=== PATIENT | female | born 1960 | race Caucasian/White ===

== ENCOUNTER 2016-11-20 14:14 | Emergency (ER) | payer BC ==
[2016-11-20 14:58] VITALS: BP 111/77
--- NOTE | 2016-11-20 15:28 | UC ---
Complaint Female HPI - HPI Summary HPI Summary: TWO DAYS URINARY PRESSURE DISCOMFORT FREQUENCY; NO ABDOMINAL PAIN, NO BACK PAIN , NO FEVER. - History Of Current Complaint Chief Complaint: UCGU Stated Complaint: URINARY Time Seen by Provider: 11/20/16 14:50 Hx Obtained From: Patient Hx Last Menstrual Period: 3yrs Onset/Duration: Gradual Onset, Lasting Days, Still Present Timing: Lasting Days Severity Initially: Moderate Severity Currently: Moderate Pain Intensity: 4 Pain Scale Used: 0-10 Numeric Character: Dull, Burning Associated Signs And Symptoms: Positive: Negative - Risk Factors Ectopic Risk Factor: Negative Ovarian Torsion Risk Factor: Negative - Allergies/Home Medications Allergies/Adverse Reactions: Allergies Allergy/AdvReac Type Severity Reaction Status Date / Time No Known Allergies Allergy Verified 11/20/16 14:58 PMH/Surg Hx/FS Hx/Imm Hx Previously Healthy: Yes - Surgical History Surgery Procedure, Year, and Place: , "sleeve gastrectomy" 2012 - Social History Alcohol Use: Occasionally Substance Use Type: None Smoking Status (MU): Never Smoked Tobacco Review of Systems Constitutional: Negative Skin: Negative Eyes: Negative ENT: Negative Respiratory: Negative Cardiovascular: Negative Gastrointestinal: Negative Genitourinary: Dysuria, Frequency, Urgency Motor: Negative Neurovascular: Negative Musculoskeletal: Negative Neurological: Negative Psychological: Negative All Other Systems Reviewed And Are Negative: Yes Physical Exam Triage Information Reviewed: Yes Appearance: Well-Appearing, No Pain Distress, Well-Nourished Vital Signs: Initial Vital Signs Temp 98.6 F 11/20/16 14:52 Pulse 83 11/20/16 14:52 Resp 20 11/20/16 14:52 BP 111/77 11/20/16 14:52 Vital Signs Reviewed: Yes Eye Exam: Normal ENT Exam: Normal ENT: Positive: Normal ENT inspection, TMs normal Dental Exam: Normal Neck exam: Normal Neck: Positive: Supple, Nontender, No Lymphadenopathy Respiratory Exam: Normal Respiratory: Positive: Chest non-tender, Lungs clear, Normal breath sounds, No respiratory distress Cardiovascular Exam: Normal Cardiovascular: Positive: RRR, No Murmur Abdominal Exam: Normal Musculoskeletal Exam: Normal Musculoskeletal: Positive: Strength Intact, ROM Intact Neurological Exam: Normal Psychological Exam: Normal Psychological: Positive: Normal Response To Family Skin Exam: Normal Complaint Female Dx - Differential Dx/Diagnosis Differential Diagnosis/HQI/PQRI: Ureteral Stone, Urinary Tract Infection Provider Diagnoses: URINARY TRACT INFECTION Discharge - Discharge Plan Condition: Stable Disposition: HOME Prescriptions: Phenazopyridine TAB* [Pyridium 100 mg TAB*] 100 mg PO TID PRN #15 tab PRN Reason: Pain Sulfamethox/Trimethoprim DS* [Bactrim DS 800/160 TAB*] 1 tab PO BID #10 tab Patient Education Materials: Urinary Tract Infection in Women (ED) Referrals: Bianka Hale MD [Primary Care Provider] -
== END 2016-11-20 15:17 | disposition home or self-care (01) ==
LOC: UCCORT 14:14
DX: N39.0 Urinary tract infection, site not specified (principal)
CPT/HCPCS: 81003; 87086; 99212; G0463

== ENCOUNTER 2017-04-20 14:06 | Emergency (ER) | payer BC ==
[2017-04-20 14:56] VITALS: BP 111/71
--- NOTE | 2017-04-20 15:03 | UC ---
Throat Pain/Nasal Aba HPI - HPI Summary HPI Summary: 56F presents with sinus congestion for 12 days. She states in the past couple days the sinus congestion has changed. It was runny and now is thicker and stuck. She has been using a nettipott and sudafed without relief. She admits to post nasal drip and sore throat from such. She admits to pressure behind ears and headache. She denies any chest pain, SOB, or abdominal pain. medication reviewed. - History of Current Complaint Chief Complaint: UCGeneralIllness Stated Complaint: SINUS COMPLAINT Time Seen by Provider: 04/20/17 14:56 Hx Last Menstrual Period: 3yrs Pain Intensity: 3 - Allergies/Home Medications Allergies/Adverse Reactions: Allergies Allergy/AdvReac Type Severity Reaction Status Date / Time No Known Allergies Allergy Verified 04/20/17 14:48 Home Medications: Home Medications Pseudoephedrine-Ibuprofen [Advil Cold & Sinus] 1 cap PO Q6H PRN 04/20/17 [ History Confirmed 04/20/17] PMH/Surg Hx/FS Hx/Imm Hx Endocrine History: Other Other Endocrine History: no DM Respiratory History: Other Other Respiratory History: no asthma - Surgical History Surgery Procedure, Year, and Place: , "sleeve gastrectomy" 2012 - Family History Known Family History: Negative: Respiratory Disease - Social History Alcohol Use: Occasionally Substance Use Type: None Smoking Status (MU): Never Smoked Tobacco Review of Systems Constitutional: Negative ENT: Sinus Congestion, Sinus Pain/Tenderness Respiratory: Cough Cardiovascular: Negative All Other Systems Reviewed And Are Negative: Yes Physical Exam Triage Information Reviewed: Yes Appearance: Well-Appearing Vital Signs: Initial Vital Signs Temp 98.4 F 04/20/17 14:50 Pulse 80 04/20/17 14:50 Resp 16 04/20/17 14:50 BP 111/71 04/20/17 14:50 Pulse Ox 97 04/20/17 14:50 Eye Exam: Normal ENT: Positive: Pharynx normal, Nasal congestion, TMs normal - with fluid behind TM, Sinus tenderness Neck: Positive: Supple, Nontender, No Lymphadenopathy Respiratory: Positive: Lungs clear, Normal breath sounds Cardiovascular: Positive: RRR Abdomen Description: Positive: Nontender, Soft Bowel Sounds: Positive: Present Musculoskeletal Exam: Normal Neurological Exam: Normal Psychological Exam: Normal Skin Exam: Normal Throat Pain/Nasal Course/Dx - Course Course Of Treatment: 56F presents with sinus congestion for 12 days. She states in the past couple days the sinus congestion has changed. It was runny and now is thicker and stuck. She has been using a nettipott and sudafed without relief. She admits to post nasal drip and sore throat from such. She admits to pressure behind ears and headache. She denies any chest pain, SOB, or abdominal pain. on exam has fluid behind TM, sinus tenderness, lungs CTA, pharynx normal. will treat for sinus infection with augmentin. patient understand and agrees with plan. - Differential Dx/Diagnosis Differential Diagnosis/HQI/PQRI: Pharyngitis, Sinusitis, URI Provider Diagnoses: sinusitis Discharge - Discharge Plan Condition: Good Disposition: HOME Prescriptions: Amoxicillin/Clavulanate TAB* [Augmentin TAB 500 mg*] 500 mg PO BID #20 tab Patient Education Materials: Sinusitis (ED) Referrals: [facility] [place] [facility] [Outside] Additional Instructions: Take antibiotic twice a day for 10 days Use saline spray in nose as much as needed Use humidifier in room or can use warm water in bowls Use OTC decongestions Follow up with primary care physician within a week for no improvement Return to ED with any new or worsening symptoms
== END 2017-04-20 15:11 | disposition home or self-care (01) ==
LOC: UCCORT 14:06
DX: J32.9 Chronic sinusitis, unspecified (principal); Z98.84 Bariatric surgery status
CPT/HCPCS: 99212; G0463

== ENCOUNTER 2017-05-13 07:00 | Emergency (ER) | payer BC ==
[2017-05-13 07:18] VITALS: BP 118/77
--- NOTE | 2017-05-13 07:31 | UC ---
Complaint Female HPI - HPI Summary HPI Summary: urinary frequency x 2 days no dysuria, + bad odor of the urine no fever, no chills, no flank pain - History Of Current Complaint Chief Complaint: UCGU Stated Complaint: URINARY Time Seen by Provider: 05/13/17 07:14 Hx Obtained From: Patient Hx Last Menstrual Period: 3yrs Onset/Duration: Gradual Onset, Lasting Days - 2, Still Present Timing: Constant Severity Initially: Moderate Severity Currently: Moderate Pain Intensity: 3 Character: Not Applicable Aggravating Factor(s): Urination Alleviating Factor(s): Nothing Associated Signs And Symptoms: Negative: Fever, Back Pain, Vaginal Bleeding/ Discharge, Vaginal Discharge, Vomiting(# Of Episodes =), Genital Swelling, Genital Blisters, Retained Foregin Body (Specify) - Allergies/Home Medications Allergies/Adverse Reactions: Allergies Allergy/AdvReac Type Severity Reaction Status Date / Time No Known Allergies Allergy Verified 05/13/17 07:15 PMH/Surg Hx/FS Hx/Imm Hx Previously Healthy: Yes - Surgical History Surgery Procedure, Year, and Place: , "sleeve gastrectomy" 2012 - Family History Known Family History: Negative: Respiratory Disease - Social History Alcohol Use: Occasionally Substance Use Type: None Smoking Status (MU): Never Smoked Tobacco Review of Systems Constitutional: Negative Skin: Negative Eyes: Negative ENT: Negative Respiratory: Negative Cardiovascular: Negative Gastrointestinal: Negative Genitourinary: Frequency, Urgency Is Patient Immunocompromised?: No All Other Systems Reviewed And Are Negative: Yes Physical Exam Triage Information Reviewed: Yes Appearance: Well-Appearing, No Pain Distress, Well-Nourished Vital Signs: Initial Vital Signs Temp 98.3 F 05/13/17 07:09 Pulse 67 05/13/17 07:09 Resp 16 05/13/17 07:09 BP 118/77 05/13/17 07:09 Pulse Ox 100 05/13/17 07:09 Vital Signs Reviewed: Yes Eyes: Positive: Conjunctiva Clear ENT: Positive: Normal ENT inspection, Hearing grossly normal, Pharynx normal Neck exam: Normal Neck: Positive: Supple, Nontender, No Lymphadenopathy Respiratory: Positive: Chest non-tender, Lungs clear, Normal breath sounds, No respiratory distress Cardiovascular: Positive: RRR, No Murmur, Pulses Normal, Brisk Capillary Refill Skin Exam: Normal Complaint Female Dx - Differential Dx/Diagnosis Provider Diagnoses: UTI Discharge - Discharge Plan Condition: Stable Disposition: HOME Prescriptions: Sulfamethox/Trimethoprim DS* [Bactrim DS 800/160 TAB*] 1 tab PO BID #14 tab Patient Education Materials: Urinary Tract Infection in Women (ED) Referrals: No Primary Care Phys,NOPCP [Primary Care Provider] - 7 Days
== END 2017-05-13 07:33 | disposition home or self-care (01) ==
LOC: UCCORT 07:00
DX: N39.0 Urinary tract infection, site not specified (principal)
CPT/HCPCS: 81003; 87086; 99212; G0463

== ENCOUNTER 2017-11-18 18:42 | Emergency (ER) | payer BC ==
[2017-11-18 19:02] VITALS: BP 121/62
[2017-11-18] MEDS ORDERED: Nitrofurantoin Macrocrystals* 50 MG CAP PO ONE ×2 (19:19→19:23)
[2017-11-18] MEDS ORDERED: Phenazopyridine TAB* 100 MG PO ONE (19:19)
--- NOTE | 2017-11-18 19:26 | UC ---
Complaint Female HPI - HPI Summary HPI Summary: patient c/o dysuria and frequency for the past 3 days, denies flank pain, fever or chills. States she takes cranberry pills to prevent UTIs but this time around she was very dehydrated. Last UTI about a year ago. - History Of Current Complaint Chief Complaint: UCGU Stated Complaint: URINARY Time Seen by Provider: 11/18/17 19:12 Hx Obtained From: Patient Hx Last Menstrual Period: 3yrs Onset/Duration: Sudden Onset, Lasting Days Severity Initially: Mild Severity Currently: Moderate Pain Intensity: 3 Character: Burning Aggravating Factor(s): Urination Alleviating Factor(s): Nothing Associated Signs And Symptoms: Positive: Negative - Risk Factors Ectopic Risk Factor: Negative Ovarian Torsion Risk Factor: Negative - Allergies/Home Medications Allergies/Adverse Reactions: Allergies Allergy/AdvReac Type Severity Reaction Status Date / Time No Known Allergies Allergy Verified 11/18/17 19:02 PMH/Surg Hx/FS Hx/Imm Hx Previously Healthy: Yes - Surgical History Surgery Procedure, Year, and Place: , "sleeve gastrectomy" 2012 - Family History Known Family History: Positive: None Negative: Respiratory Disease - Social History Alcohol Use: Occasionally Substance Use Type: None Smoking Status (MU): Never Smoked Tobacco Review of Systems Constitutional: Negative Genitourinary: Dysuria, Frequency All Other Systems Reviewed And Are Negative: Yes Physical Exam Triage Information Reviewed: Yes Appearance: Well-Appearing, No Pain Distress, Well-Nourished Vital Signs: Initial Vital Signs Temp 98.2 F 11/18/17 18:55 Pulse 86 11/18/17 18:55 Resp 16 11/18/17 18:55 BP 121/62 11/18/17 18:55 Pulse Ox 100 11/18/17 18:55 Vital Signs Reviewed: Yes Eyes: Positive: Conjunctiva Clear ENT: Positive: Hearing grossly normal Neck: Positive: Supple, Nontender, No Lymphadenopathy Respiratory: Positive: Chest non-tender, Lungs clear, Normal breath sounds, No respiratory distress Cardiovascular: Positive: RRR, No Murmur, Pulses Normal, Brisk Capillary Refill Abdomen Description: Positive: Nontender, No Organomegaly, Soft Bowel Sounds: Positive: Present Complaint Female Dx - Course Course Of Treatment: start pyridium only for symptomatic relief and macrobid twice a day for 7 days, continue plenty of fluids, f/u with PCP as needed - Differential Dx/Diagnosis Provider Diagnoses: UTI Discharge - Sign-Out/Discharge Documenting (check all that apply): Patient Departure All imaging exams completed and their final reports reviewed: No Studies - Discharge Plan Condition: Stable Disposition: HOME Prescriptions: Nitrofurantoin Monohyd/M-Cryst [Macrobid 100 mg Capsule] 100 mg PO BID 7 Days # 14 cap Phenazopyridine TAB* [Pyridium 100 mg TAB*] 100 mg PO TID PRN #3 tab PRN Reason: Pain Patient Education Materials: Phenazopyridine (By mouth), Urinary Tract Infection in Women (ED), Nitrofurantoin Macrocrystals (By mouth) Referrals: Bianka Hale MD [Primary Care Provider] - - Billing Disposition and Condition Condition: STABLE Disposition: Home
== END 2017-11-18 19:36 | disposition home or self-care (01) ==
LOC: UCCORT 18:42
DX: N39.0 Urinary tract infection, site not specified (principal)
CPT/HCPCS: 87077; 87086; 87186; 99213; A9270-GY; G0463

== ENCOUNTER 2017-11-30 18:12 | Emergency (ER) | payer BC ==
[2017-11-30 19:00] VITALS: BP 114/70
--- NOTE | 2017-11-30 20:08 | UC ---
Complaint Female HPI - HPI Summary HPI Summary: E. coli UTI treated her on 11/18, sensitive to all antibiotics tested. Took full course, added cranberry and high intake of fluids, but had recurrence of symptoms within 48 hours, with dysuria, frequency and urgency. Post menopause x 2 years, no increase in sexual activity, no vaginal symptoms. - History Of Current Complaint Chief Complaint: UCGU Stated Complaint: URINARY Time Seen by Provider: 11/30/17 19:58 Hx Obtained From: Patient Hx Last Menstrual Period: none Onset/Duration: Sudden Onset, Lasting Days - 2 Timing: Constant Severity Initially: Moderate Severity Currently: Moderate Pain Intensity: 3 Character: Burning, Cramping Aggravating Factor(s): Urination - Allergies/Home Medications Allergies/Adverse Reactions: Allergies Allergy/AdvReac Type Severity Reaction Status Date / Time No Known Allergies Allergy Verified 11/30/17 18:50 PMH/Surg Hx/FS Hx/Imm Hx Previously Healthy: Yes - Surgical History Surgery Procedure, Year, and Place: , "sleeve gastrectomy" 2012 - Family History Known Family History: Positive: Hypertension, Other Family History: mother of carcinoid - Social History Occupation: Employed Full-time Lives: With Family Alcohol Use: Occasionally Substance Use Type: None Smoking Status (MU): Never Smoked Tobacco Review of Systems Constitutional: Negative Skin: Negative Eyes: Negative ENT: Negative Respiratory: Negative Cardiovascular: Negative Gastrointestinal: Negative Genitourinary: Dysuria, Frequency, Urgency Motor: Negative Neurovascular: Negative Musculoskeletal: Arthralgia - low back ache. Neurological: Negative Psychological: Negative Is Patient Immunocompromised?: No All Other Systems Reviewed And Are Negative: Yes Physical Exam Triage Information Reviewed: Yes Appearance: Well-Appearing, No Pain Distress Vital Signs: Initial Vital Signs Temp 97.9 F 11/30/17 18:52 Pulse 67 11/30/17 18:52 Resp 22 11/30/17 18:52 BP 114/70 11/30/17 18:52 Pulse Ox 100 11/30/17 18:52 Eyes: Positive: Conjunctiva Clear Respiratory: Positive: Lungs clear, Normal breath sounds Cardiovascular: Positive: RRR, No Murmur Abdomen Description: Positive: Nontender, No Organomegaly, Soft. Negative: CVA Tenderness (R), CVA Tenderness (L) Neurological Exam: Normal Psychological Exam: Normal Skin Exam: Normal Diagnostics - Laboratory Diagnostic Studies Completed/Ordered: culture sent; no UA dip due to use of azo Complaint Female Dx - Course Course Of Treatment: bactrim for UTI - Differential Dx/Diagnosis Differential Diagnosis/HQI/PQRI: Urinary Tract Infection Provider Diagnoses: UTI Discharge - Sign-Out/Discharge Documenting (check all that apply): Patient Departure All imaging exams completed and their final reports reviewed: No Studies - Discharge Plan Condition: Stable Disposition: HOME Prescriptions: Sulfamethox/Trimethoprim DS* [Bactrim DS 800/160 TAB*] 1 tab PO BID #10 tab Patient Education Materials: Urinary Tract Infection in Women (ED) Referrals: Bianka Hale MD [Primary Care Provider] - Additional Instructions: As reviewed, the recurrence of symptoms is most likely a problem of resistance, but follow up with be important. I suggest ensuring a follow up culture with Dr. Hale. Continue high intake of fluids, take full course of bactrim. You can call for the results of the culture on Monday afternoon if you have not had a call. - Billing Disposition and Condition Condition: STABLE Disposition: Home
--- NOTE | 2017-12-03 08:31 | UC ---
- Progress Note Progress Note: Please call to advise that repeat culture did not grow out a bacteria. This could be because she was taking an antibiotic at the time. If she is not feeling better, should follow up with PMD. Discharge - Sign-Out/Discharge Documenting (check all that apply): Patient Departure All imaging exams completed and their final reports reviewed: No Studies - Discharge Plan Condition: Stable Disposition: HOME Prescriptions: Sulfamethox/Trimethoprim DS* [Bactrim DS 800/160 TAB*] 1 tab PO BID #10 tab Patient Education Materials: Urinary Tract Infection in Women (ED) Referrals: Bianka Hale MD [Primary Care Provider] - Additional Instructions: As reviewed, the recurrence of symptoms is most likely a problem of resistance, but follow up with be important. I suggest ensuring a follow up culture with Dr. Hale. Continue high intake of fluids, take full course of bactrim. You can call for the results of the culture on Monday afternoon if you have not had a call. - Billing Disposition and Condition Condition: STABLE Disposition: Home
== END 2017-11-30 20:17 | disposition home or self-care (01) ==
LOC: UCCORT 18:12
DX: N39.0 Urinary tract infection, site not specified (principal)
CPT/HCPCS: 87086; 99212; G0463

== ENCOUNTER 2018-06-02 09:22 | Emergency (ER) | payer BC ==
[2018-06-02 09:37] VITALS: BP 106/66
--- NOTE | 2018-06-02 09:49 | UC ---
Throat Pain/Nasal Aba HPI - HPI Summary HPI Summary: sinus pain and pressure x 8 days nasal congestion and yellow / green discharge sore throat , ear pain , no cough , no fever , + chills - History of Current Complaint Chief Complaint: UCRespiratory Stated Complaint: SINUSES Time Seen by Provider: 06/02/18 09:41 Hx Obtained From: Patient Hx Last Menstrual Period: none Onset/Duration: Gradual Onset, Lasting Days - 8, Still Present Severity: Moderate Pain Intensity: 0 Cough: None Associated Signs & Symptoms: Positive: Sinus Discomfort, Nasal Discharge. Negative: Wheezing, Hoarseness, Fever, Vomiting, Rash - Allergies/Home Medications Allergies/Adverse Reactions: Allergies Allergy/AdvReac Type Severity Reaction Status Date / Time No Known Allergies Allergy Verified 06/02/18 09:32 Home Medications: Home Medications Ibuprofen/Pseudoephedrine HCl [Advil Cold & Sinus] 2 tab PO Q6H PRN 06/02/18 [ History Confirmed 06/02/18] Naproxen Sodium [Aleve] 220 mg PO BID 06/02/18 [History Confirmed 06/02/18] PMH/Surg Hx/FS Hx/Imm Hx Previously Healthy: Yes - Surgical History Surgical History: Yes Surgery Procedure, Year, and Place: , "sleeve gastrectomy" 2012 - Family History Known Family History: Positive: None, Hypertension, Other Negative: Respiratory Disease Family History: mother of carcinoid - Social History Alcohol Use: Occasionally Substance Use Type: None Smoking Status (MU): Never Smoked Tobacco Review of Systems All Other Systems Reviewed And Are Negative: Yes Constitutional: Positive: Chills, Fatigue Skin: Positive: Negative Eyes: Positive: Negative ENT: Positive: Sore Throat, Ear Ache, Nasal Discharge, Sinus Congestion, Sinus Pain/Tenderness Respiratory: Positive: Negative Cardiovascular: Positive: Negative Gastrointestinal: Positive: Negative Genitourinary: Positive: Negative Is Patient Immunocompromised?: No Physical Exam Triage Information Reviewed: Yes Appearance: Well-Appearing, No Pain Distress, Well-Nourished Vital Signs: Initial Vital Signs Temp 97.8 F 06/02/18 09:34 Pulse 87 06/02/18 09:34 Resp 16 06/02/18 09:34 BP 106/66 06/02/18 09:34 Pulse Ox 100 06/02/18 09:34 Vital Signs Reviewed: Yes Eyes: Positive: Conjunctiva Clear ENT: Positive: Normal ENT inspection, Hearing grossly normal, Pharynx normal, Nasal drainage, TMs normal, Sinus tenderness. Negative: TM bulging, TM dull, TM red, Tonsillar swelling, Tonsillar exudate Neck: Positive: Supple, Nontender, No Lymphadenopathy Respiratory: Positive: Chest non-tender, Lungs clear, Normal breath sounds Cardiovascular: Positive: RRR, No Murmur, Pulses Normal Abdominal Exam: Normal Skin Exam: Normal Throat Pain/Nasal Course/Dx - Differential Dx/Diagnosis Provider Diagnosis: Sinusitis Discharge - Sign-Out/Discharge Documenting (check all that apply): Patient Departure All imaging exams completed and their final reports reviewed: No Studies - Discharge Plan Condition: Stable Disposition: HOME Prescriptions: Amoxicillin/Clavulanate TAB* [Augmentin TAB 875*] 875 mg PO BID #20 tab Patient Education Materials: Sinusitis (ED) Referrals: Bianka Hale MD [Primary Care Provider] - If Needed - Billing Disposition and Condition Condition: STABLE Disposition: Home
== END 2018-06-02 09:49 | disposition home or self-care (01) ==
LOC: UCCORT 09:22
DX: J32.9 Chronic sinusitis, unspecified (principal); J02.9 Acute pharyngitis, unspecified
CPT/HCPCS: 99212; G0463

== ENCOUNTER 2019-03-27 08:19 | Emergency (ER) | payer BC ==
[2019-03-27 08:37] VITALS: BP 111/78
--- NOTE | 2019-03-27 08:46 | UC ---
Throat Pain/Nasal Aba HPI - HPI Summary HPI Summary: 58-year-old woman comes in with chief complaint of upper respiratory tract infection symptoms for 10 days. She's and yellow rhinorrhea with postnasal drip. She's been using [id number] medications which helped some with the symptoms briefly but overall she's getting worse. She now has sinus pressure in both ears hurt the left worse than the right. With postnasal drip she does have a cough however denies any chest congestion or shortness of breath. - History of Current Complaint Chief Complaint: UCRespiratory Stated Complaint: SINUS COMPLAINT Time Seen by Provider: 03/27/19 08:31 Hx Last Menstrual Period: none Pain Intensity: 2 - Allergies/Home Medications Allergies/Adverse Reactions: Allergies Allergy/AdvReac Type Severity Reaction Status Date / Time No Known Allergies Allergy Verified 03/27/19 08:32 Home Medications: Home Medications Ibuprofen TAB* [Advil TAB*] 400 mg PO Q6H PRN 03/27/19 [History Confirmed ] PMH/Surg Hx/FS Hx/Imm Hx Previously Healthy: Yes - Surgical History Surgical History: Yes Surgery Procedure, Year, and Place: , "sleeve gastrectomy" 2012 - Family History Known Family History: Positive: None, Hypertension, Other Negative: Respiratory Disease Family History: mother of carcinoid - Social History Alcohol Use: Occasionally Substance Use Type: None Smoking Status (MU): Never Smoked Tobacco Review of Systems All Other Systems Reviewed And Are Negative: Yes Constitutional: Positive: Other - SEE HPI Skin: Positive: Negative Eyes: Positive: Negative ENT: Positive: Sore Throat, Ear Ache, Nasal Discharge, Sinus Congestion, Sinus Pain/Tenderness Respiratory: Positive: Cough Cardiovascular: Positive: Negative Gastrointestinal: Positive: Negative Motor: Positive: Negative Neurovascular: Positive: Negative Musculoskeletal: Positive: Negative Neurological: Positive: Negative Psychological: Positive: Negative Is Patient Immunocompromised?: No Physical Exam Triage Information Reviewed: Yes Appearance: No Pain Distress, Well-Nourished, Ill-Appearing - MILD Vital Signs: Initial Vital Signs Temp 98.1 F 03/27/19 08:33 Pulse 86 03/27/19 08:33 Resp 16 03/27/19 08:33 BP 111/78 03/27/19 08:33 Pulse Ox 100 03/27/19 08:33 Vital Signs Reviewed: Yes Eye Exam: Normal Eyes: Positive: Conjunctiva Clear ENT: Positive: Pharyngeal erythema, Nasal congestion, Nasal drainage, TMs normal Neck: Positive: Supple Respiratory: Positive: Lungs clear, Normal breath sounds, No respiratory distress Cardiovascular: Positive: RRR Musculoskeletal: Positive: Strength Intact, ROM Intact Neurological: Positive: Alert, Muscle Tone Normal Psychological: Positive: Age Appropriate Behavior Skin Exam: Normal Throat Pain/Nasal Course/Dx - Differential Dx/Diagnosis Provider Diagnosis: Sinusitis Discharge ED - Sign-Out/Discharge Documenting (check all that apply): Patient Departure All imaging exams completed and their final reports reviewed: No Studies - Discharge Plan Condition: Stable Disposition: HOME Prescriptions: Amoxicillin/Clavulanate TAB* [Augmentin TAB 875*] 875 mg PO BID #20 tab Fluticasone NASAL SPRAY 50MCG* [Flonase NASAL SPRAY 50MCG*] 2 spray BOTH NARES DAILY #1 btl Patient Education Materials: Sinusitis (ED) Referrals: Bianka Hale MD [Primary Care Provider] - Additional Instructions: FOLLOW UP WITH YOUR DOCTOR IF NOT COMPLETELY IMPROVED. GET REEVALUATED SOONER IF NOT IMPROVING OR WORSE OR ANY QUESTIONS OR CONCERNS. - Billing Disposition and Condition Condition: STABLE Disposition: Home
== END 2019-03-27 08:50 | disposition home or self-care (01) ==
LOC: UCCORT 08:19
DX: J32.9 Chronic sinusitis, unspecified (principal); R09.82 Postnasal drip
CPT/HCPCS: 99212; G0463